=== PATIENT | female | born 1975 | race Caucasian/White ===

== ENCOUNTER 2018-05-25 13:58 | Emergency (ER) | payer MEDICAID ==
[~2018-05-25] VITALS: Ht 162.6 cm; Wt 79.5 kg
[2018-05-25 14:01] VITALS: BP 142/100
[2018-05-25] MEDS ORDERED: CEPH500C5 PO (14:59)
[2018-05-25] MEDS ORDERED: HYDR-4353 PO (14:59)
[2018-05-25] MEDS ORDERED: NYST1000 PO (14:59)
== END 2018-05-25 15:08 | disposition home or self-care (01) ==
LOC: ER 13:59
DX: B37.0 Candidal stomatitis (principal); M19.90 Unspecified osteoarthritis, unspecified site; Z56.0 Unemployment, unspecified
CPT/HCPCS: 99283

== ENCOUNTER 2020-11-08 16:21 | Emergency (ER) | payer MEDICAID ==
[~2020-11-08] VITALS: Ht 162.6 cm; Wt 81.3 kg
[~2020-11-08 16:21] MED LIST: NO HOME MEDS
[2020-11-08 16:28] VITALS: BP 141/83
[2020-11-08] MEDS ORDERED: ketorolac tromethamine 15mg/ml inj. IM ONE (17:10)
[2020-11-08] MEDS ORDERED: diazepam 5mg tablet PO ONE (17:10)
[2020-11-08] MEDS ORDERED: DIAZ5TAB22 PO (17:31)
[2020-11-08] MEDS ORDERED: IBUP-1984 PO (17:31)
[2020-11-08] MEDS ORDERED: CYCL-1 PO (17:31)
== END 2020-11-08 17:43 | disposition home or self-care (01) ==
LOC: ER 16:23
DX: M25.511 Pain in right shoulder (principal); R20.0 Anesthesia of skin; M19.90 Unspecified osteoarthritis, unspecified site; Z56.0 Unemployment, unspecified; Z79.899 Other long term (current) drug therapy
CPT/HCPCS: 73030; 96372; 99283; J1885

== ENCOUNTER 2021-02-17 19:51 | Emergency (ER) | payer MEDICAID ==
[~2021-02-17] VITALS: Ht 162.6 cm; Wt 79.5 kg
[~2021-02-17 19:51] MED LIST changes: +CYCL-1 PO
[2021-02-17 19:53] VITALS: BP 153/69
[2021-02-17] MEDS ORDERED: HYDROcodone/acetaminophen 10/325mg tab PO STA (19:56)
[2021-02-17] MEDS ORDERED: diazepam 5mg tablet PO ONE (22:00)
[2021-02-17] MEDS ORDERED: ketorolac tromethamine 15mg/ml inj. IM ONE (22:00)
[2021-02-17] MEDS ORDERED: ORPH100T2 PO (22:04)
== END 2021-02-17 22:31 | disposition home or self-care (01) ==
LOC: ER 19:52
DX: M54.42 Lumbago with sciatica, left side (principal); G89.29 Other chronic pain; M25.552 Pain in left hip; M19.90 Unspecified osteoarthritis, unspecified site; Z56.0 Unemployment, unspecified; Z79.899 Other long term (current) drug therapy
CPT/HCPCS: 96372; 99283; J1885

== ENCOUNTER 2021-02-18 09:05 | Emergency (ER) | payer MEDICAID ==
[~2021-02-18 09:05] MED LIST changes: +ORPH100T2 PO
== END 2021-02-18 10:48 | disposition left against medical advice (07) ==
LOC: ER 09:06
DX: M54.9 Dorsalgia, unspecified (principal); Z53.21 Procedure and treatment not carried out due to patient leaving prior to being seen by health care provider

== ENCOUNTER 2021-02-19 04:51 | Emergency (ER) | payer MEDICAID ==
[~2021-02-19] VITALS: Ht 162.6 cm; Wt 81.8 kg
[2021-02-19 05:04] VITALS: BP 163/116
== END 2021-02-19 07:31 | disposition left against medical advice (07) ==
LOC: ER 04:51
DX: M54.32 Sciatica, left side (principal); Z53.21 Procedure and treatment not carried out due to patient leaving prior to being seen by health care provider

== ENCOUNTER 2021-02-24 23:12 | Emergency (ER) | payer MEDICAID ==
[2021-02-26] MEDS ORDERED: CYCL-1 PO (14:24)
[2021-02-26] MEDS ORDERED: IBUP-1984 PO (14:24)
[2021-02-26] MEDS ORDERED: HYDR-3965 PO (14:24)
== END 2021-02-25 03:11 | disposition left against medical advice (07) ==
LOC: ER 23:15
DX: M54.9 Dorsalgia, unspecified (principal); Z53.21 Procedure and treatment not carried out due to patient leaving prior to being seen by health care provider

== ENCOUNTER 2021-02-26 05:16 | Emergency (ER) | payer MEDICAID ==
[~2021-02-26] VITALS: Ht 162.6 cm; Wt 81.4 kg
[2021-02-26] MEDS ORDERED: HYDROcodone/acetaminophen 5mg/325mg tablet PO ONE (05:45)
--- NOTE | 2021-02-26 06:07 | NUR ---
Patient removed 2 necklaces and several rings. Jewelry put into specimen bag and labeled with patient sticker at the bedside. patient still had some rings that she states she cannot remove as they were her mothers. I explained that she needs to be metal free and patient stated she would try to remove later, " she wants to rest now and let the pain meds work". Provided patient with gown and blanket and turned of lights as requested. MRI form filled, on patient chart.
[2021-02-26] MEDS ORDERED: ondansetron/PF 4mg/2ml inj IV ONE (12:35)
[2021-02-26] MEDS ORDERED: ketorolac tromethamine 15mg/ml inj. IV ONE (12:35)
[2021-02-26] MEDS ORDERED: cyclobenzaprine 10mg tablet PO ONE (12:35)
[2021-02-26] MEDS ORDERED: morphine 2 MG/ML inj. syringe IV PRN (12:35)
[2021-02-26] MEDS ORDERED: morphine 4 MG/ML inj SYRINge IV ONE (12:35)
--- NOTE | 2021-02-26 12:55 | NUR ---
PATIENT HAS 0 mL POSTRESIDUAL AFTER BLADDERSCANNER AND 300mL OUT PUT ON COMMODE
[2021-02-26 14:05] VITALS: BP 138/77
[2021-02-26] MEDS ORDERED: IBUP-1984 PO (14:24)
[2021-02-26] MEDS ORDERED: HYDR-3965 PO (14:24)
[2021-02-26] MEDS ORDERED: CYCL-1 PO (14:24)
--- NOTE | 2021-02-26 15:00 | NUR ---
PATIENT HAD GAIT TEST WAS ABLE TO AMBULATE W/O ASSIST FOR 100 FEET MD JOHNSON
== END 2021-02-26 15:11 | disposition home or self-care (01) ==
LOC: ER 05:17
DX: M13.80 Other specified arthritis, unspecified site (principal); M79.605 Pain in left leg; Z56.0 Unemployment, unspecified
CPT/HCPCS: 72148; 96374; 96375; 99284; J1885; J2270; J2405

== ENCOUNTER 2022-05-11 22:31 | Emergency (ER) | payer MEDICAID ==
[~2022-05-11] VITALS: Ht 162.6 cm; Wt 72.7 kg
[~2022-05-11 22:31] MED LIST changes: -ORPH100T2 PO
[2022-05-11 22:49] VITALS: BP 145/83
== END 2022-05-12 09:00 | disposition left against medical advice (07) ==
LOC: ER 22:33
DX: R09.81 Nasal congestion (principal); Z53.21 Procedure and treatment not carried out due to patient leaving prior to being seen by health care provider

== ENCOUNTER 2025-02-24 13:21 | Emergency (ER) | payer MEDICAID ==
[~2025-02-24] VITALS: Ht 162.6 cm; Wt 79.5 kg
[2025-02-24 13:27] VITALS: BP 146/54; PULSE 76; RESP 18; O2SAT 95
--- NOTE | 2025-02-24 14:07 | Physician Documentation ---
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 States he has not used today. He is attempting to go to [facility] Tetanus within 5 years?: No Medication Reconciliation Allergies: Coded Allergies: No Known Allergies (Unverified , 02/24/25) Scheduled PRN Cyclobenzaprine* (Cyclobenzaprine*), 1 TAB PO TID PRN for pain Miscellaneous Medications Home Med List (No Home Medications), (Reported) Past Medical History Past Medical History: Arthritis Past Surgical History: noncontributory Alcohol Use: None Drug Use: none Occupation: unemployed Review of Systems All Other Systems at this time: Reviewed and Negative ROS As stated above in the HPI, otherwise all systems are reviewed and negative. Physical Exam Vital Signs: Temperature: 98.4, Source: Oral, Heart Rate: 76, Respiratory Rate: 18, BP: 146/54, Pulse Oximetry: 95, Weight: 79.454 Oxygen Flow Rate: 0 Physical Exam General: Alert, no apparent distress. Respiratory: Lungs clear, no respiratory distress. Cardiovascular: Regular rate and rhythm, no murmurs. Gastrointestinal: Soft, nontender, nondistended. Bowels sounds present. Neurologic: Oriented x4. Psychiatric: Normal mood and affect. Skin: Normal color, warm and dry. No edema, no ecchymosis. Progress Results/Orders Results/Orders Vital Signs 02/24/25 02/24/25 13:27 14:14 Temp 98.4 98.4 Pulse 76 Resp 18 B/P (MAP) 146/54 Pulse Ox 95 O2 Flow Rate 0 Medical Decision Making Findings Patient does not present with any signs of intoxication or of being under the influence of recreational drugs medically clearing her for [facility] Differential Dx:Considerations: Include: Intoxication-Alcohol, Intoxication- Other drug, Personality disorder, Substance abuse disorder, Acute delirium, Closed head injury, Cervical spine injury, Skull fracture, Fracture(s), Abrasion, Contusion, Foreign body, Hematoma, Laceration, Alcohol withdrawl syndrom, Encephalopathy, Hepatitis, Medically stable, Other Departure Impression: Primary Impression: General medical exam Condition: Stable Discharge Instructions: Medical Screening Exam Additional Instructions: Patient is medically cleared for [facility] Referrals: NO PRIMARY CARE PROVIDER (PCP) Signature Scribe Signature: e Attestation: Scribed for Molina Shipman Medical Device Sales Consultant by Molina Marcial NP . 02/24/25 17:48 MOLINA SHIPMAN NP Feb 24, 2025 14:07
[2025-02-24 14:14] VITALS: TEMP 98.4
== END 2025-02-24 14:19 | disposition home or self-care (01) ==
LOC: ER 13:21
DX: F11.20 Opioid dependence, uncomplicated (principal); M19.90 Unspecified osteoarthritis, unspecified site; Z56.0 Unemployment, unspecified
CPT/HCPCS: 99282